=== PATIENT | female | born 1945 | race Caucasian/White ===

== ENCOUNTER 2016-08-07 09:44 | Inpatient (IN) | payer OTHER, MEDICARE ==
[~2016-08-07] VITALS: Ht 162.6 cm; Wt 56.7 kg
[2016-08-07] VITALS (27 sets, daily range): BP systolic 95–140; BP diastolic 27–85
--- NOTE | ~2016-08-07 | S ---
[facility] [place] [address] SURGICAL PATH RPT PROCEDURE Name: AVELINO WILSON Room #: 542-P ADM IN M.R.#: [id number] Admission: 08/07/16 Date of : 43 Discharge: Report #: [id number] Path Case #: [id number] PATHOLOGY REPORT COLLECTION DATE: 08/12/2016 RECEIVED DATE: 08/12/2016 SUBMITTING PHYS: Dr. Dilshad Nichole OTHER PHYS: Dr. Gareth Palmer SPECIMEN(S) RECEIVED: A.Bx of gastritis * * * * * * * * * * * * FINAL DIAGNOSIS: "Bx of gastritis," biopsy: - Gastric mucosa with mild reactive changes and mild chronic inflammation. - Negative H. pylori immunohistochemical stain (block A1); control reacted appropriately. (CLW:; d/t: 08/13/16) PATHOLOGIST: Domenica Sauceda M.D. REPORT ELECTRONICALLY SIGNED BY: Domenica Sauceda M.D. DATE/TIME: 08/13/2016 13:41 * * * * * * * * * * * * GROSS PATHOLOGY: Received in formalin labeled "Avelino Wilson and bx of gastritis," are 6 segments of radford soft tissue measuring 1.6 x 0.2 x 0.2 cm in aggregate dimensions and ranging from 0.2 to 0.4 cm in maximum dimension. The specimen is submitted entirely in cassette A1. (TTL; 08/12/2016) CLINICAL HISTORY: GI bleed, anemia INITIAL CPT CODE(S): A; 59633, 80729 Professional services performed by [facility] at [facility] [address], [place] [address] Technical services performed by [facility] at [address] [place] [address], [address] [address]. [facility] [address] [place] [address] SURGICAL PATH RPT PROCEDURE Name: AVELINO WILSON Room #: 542-P ADM IN M.R.#: [id number] Admission: 08/07/16 Date of : 43 Discharge: Report #: [id number] Path Case #: [id number] [facility] [address] [address] PHONE: [phone] DIRECTOR: Nilson Clark M.D. * * * END OF REPORT * * *
--- NOTE | ~2016-08-07 | P ---
[facility] [place] [address] PROCEDURE REPORT Name: ISSAC WILSON Room #: 542-P ADM IN M.R.#: [id number] Admission: 08/07/16 Attend Phys: Gareth Azul MD Discharge: Date of : 43 Report #: [id number] THIS REPORT FOR: //name// CC: Gareth Palmer MD DATE OF SERVICE: 08/08/2016 PROCEDURE: Diagnostic EGD. INDICATION FOR PROCEDURE: This patient has had melena which dropped her hemoglobin down to 5. She has been taking Aleve, stopped taking her proton pump inhibitor in the past that she was on for previous peptic ulcer disease. She has a history of Hodgkin's lymphoma that was treated twice and then she underwent a stem cell transplant. Today, she is awake, alert, oriented x 4 and cooperative and pleasant to converse with. Heart, rate and rhythm are regular with a normal S1 and normal S2. The lungs are clear bilaterally. The abdomen is soft. Bowel sounds present in all 4 quadrants. There is no palpable organomegaly or mass. There is no tenderness, rebound, or guarding. Informed consent for this procedure was obtained prior to the administration of any medication. The risks of the procedure which include bleeding, perforation, infection, complications of sedation, and the possibility I could miss something have been explained to the patient and she has indicated her consent by signing. Propofol 100 mg was slowly titrated before and during this procedure for patient comfort by the anesthesia service in the Intensive Care Unit. The Fujinon upper videoscope was introduced through the upper esophageal sphincter and advanced under direct visualization to the descending duodenum. Findings are noted on withdrawal of the scope. Duodenal mucosa appears normal throughout its entirety. Pylorus, normal mucosa. Antrum, normal mucosa. In the distal body, the mucosa appears normal. In the proximal body of the stomach, there is a necrotic white based ulcer with several visible vessels, none were bleeding in the base of this ulcer, it is approximately 2 cm in size. The remaining upper stomach appeared normal including the cardia. The scope was withdrawn to the esophagus. The Z line is appropriately located at the top the gastric folds and appears normal. The esophageal mucosa appears normal throughout its entirety. The scope was withdrawn. The patient went to the recovery area in stable condition. She tolerated the procedure well. IMPRESSION: Ulceration on the proximal body of the stomach with necrotic base [address] [address] PROCEDURE REPORT Name: ISSAC WILSON Room #: 542-P [facility] IN .R.#: [id number] Admission: 08/07/16 Attend Phys: Gareth Azul MD Discharge: Date of : 43 Report #: [id number] and visible vessels in the base, nonbleeding. My recommendations were for her to continue the proton pump inhibitors, avoid Aleve. She should have a followup EGD in 10-12 weeks to document ulcer healing of an isolated proximal gastric ulcer. We will give her iron sucrose infusions. Thank you very much once again for allowing me to participate in her care. <ELECTRONICALLY SIGNED> By: Dianne Arizmendi DO 08/09/16 1612 1605 0221 Dianne Arizmendi DO /nt
--- NOTE | ~2016-08-07 | EKG ---
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: Cora CARTY : 1945 Requested By: Gareth Azul Order Number: [id number] MD: Leo Morgan Measurements Intervals [place] Rate: 84 P: 71 AR: 120 QRS: -36 QRSD: 96 T: 66 QT: 362 QTc: 428 Interpretive Statements Sinus rhythm Ventricular premature complex Abnormal R-wave progression, early transition Inferior infarct, old No previous ECGs available for comparison Electronically Signed On 08-11-2016 14:04:41 MECHANIC ASSISTANT by Leo Morgan [email or web address] <ELECTRONICALLY SIGNED> By: Leo Morgan MD, [facility] 08/11/16 1404 30 30 Leo Morgan MD, [facility] /EPI
--- NOTE | ~2016-08-07 | P ---
[facility] [place] [address] PROCEDURE REPORT Name: ISSAC WILSON Room #: 542-P [facility] IN M.R.#: [id number] Admission: 08/07/16 Attend Phys: Gareth Azul MD Discharge: Date of : 44 Report #: [id number] THIS REPORT FOR: //name// CC: Gareth Palmer MD BRIEF HISTORY: The patient is a 71-year-old woman who was admitted with gastrointestinal bleeding, found to have a gastric ulcer, who was demonstrating to have evidence of recurrent gastrointestinal bleeding during her possible stay. She is thus far has received 4-5 units of blood. PREOPERATIVE DIAGNOSIS: Recurrent bleeding ulcer. POSTOPERATIVE DIAGNOSES: 1. Very deep nonbleeding gastric ulcer, high fundus/cardia. 2. Diffuse gastritis. MEDICATIONS: Deep sedation with propofol per anesthesia. SPECIMEN: None. BIOPSIES: Gastritis. ESTIMATED BLOOD LOSS: 3 mL. PROCEDURE: EGD with biopsy. FINDINGS: Prior to propofol sedation, procedure of upper endoscopy and potential therapeutic intervention was discussed with the patient, all potential risks and its complications. She indicates she understands and desires to proceed. DESCRIPTION OF PROCEDURE: The patient in left lateral decubitus position, the [employer] video endoscope was inserted in the cervical esophagus under direct vision without difficulty. Examination of this organ to its entire length revealed normal esophageal mucosa down the squamocolumnar junction. The squamocolumnar junction was inspected and noted to be unremarkable. No ulcers, erosions or blood was seen. Scope was advanced in the stomach, was examined on end view as well as retroflexed views. There was no blood in the stomach. There was a mild erythematous gastritis, but no erosions or bleeding was seen. Examination of distal stomach revealed intact mucosa. However, examination of the proximal stomach revealed a very deep ulcer high in the fundus of the stomach essentially close to the region of the cardia. The ulcer crater was very, very deep. The edges were smooth and benign. The ulcer base was covered with white exudate. The exposed vessel was not seen. Clots were not seen. There was one blackish area on the perimeter. However, this ulcer has very deep and I have concerned [facility] [address] [place] [address] PROCEDURE REPORT Name: ISSAC WILSON Room #: 542-P [facility] IN .R.#: [id number] Admission: 08/07/16 Attend Phys: Gareth Azul MD Discharge: Date of : 43 Report #: [id number] this was a penetrating ulcer and thus with thermal intervention, we potentially could cause bleeding, not be able to control due to the size of the vessels. It was felt best not to intervene at this point. Biopsies obtained of the gastritis. The pylorus, duodenal bulb and postbulbar sweep were inspected and noted unremarkable, no evidence of blood. disposition, the patient with very deep gastric ulcer. I am concern this is a penetrating ulcer. No bleeding at this point in time. We will obtain a CT for further evaluation. If bleeding persists, she may require surgical intervention. Surgical opinion would be reasonable. She is currently on pantoprazole drip, was started last evening. She is on sucralfate, which we will continue. She should avoid use of nonsteroidals. We will follow up on biopsies and make further recommendations. Continue moderate hemoglobin. If further evidence of bleeding, surgical intervention may require. <ELECTRONICALLY SIGNED> By: Dilshad Nichole MD 08/12/16 1943 1345 1820 Dilshad Nichole MD /nt
--- NOTE | ~2016-08-07 | D ---
[facility] [place] [address] DISCHARGE SUMMARY Name: ISSAC WILSON Room #: 218-P [facility] IN M.R.#: [id number] Admission: 08/07/16 Attend Phys: Gareth Azul MD Discharge: 08/15/16 Date of : 43 Report #: [id number] THIS REPORT FOR: //name// CC: Gareth Azul Iesha Palmer DATE OF SERVICE: 08/15/2016 DISCHARGE DIAGNOSES: 1. Penetrating gastric ulcer status post EEG x 2 as well as splenic artery embolization. 2. Question transient ischemic attack with recent confusion, now resolved. 3. History non-Hodgkin's lymphoma status post stem cell transplant. 4. Rheumatoid arthritis. 5. Anemia, status post 4-5 units of packed red blood cells. CONSULTS: GI, Dr. Nichole; Surgery, Dr. Vega; IR, Dr. Sheehan. PROCEDURES: She had the first EGD done on August [address] Arizmendi that showed ulceration of proximal body of the stomach with necrotic base and visible vessels, but no bleed. She had a repeat EGD, but done by Dr. Nichole because of ongoing anemia that showed a penetrating ulcer. On August 13, she had embolization of splenic artery. HOSPITAL COURSE: The patient is a 71-year-old female with a history of peptic ulcer disease, non-Hodgkin's lymphoma status post stem cell transplant, rheumatoid arthritis, presented to the ER secondary to weakness and confusion. Please see details of admission dictated by Dr. Gareth Azul on August 07. The patient reported having some dark stools for some time and also had a hemoglobin of 5.8. She was tachycardic and confused in the ER. Initial concerns were for TIA. CT of the head in the ER was negative. She was admitted. GI was consulted for GI bleed. She had an EGD with results as above. Because of concerns of penetrating ulcer, Surgery was also consulted. She had a CT scan of the abdomen and pelvis that showed unusual appearance of a gastric fundus which suggest a large posterior penetrating gastric ulcer with opening of the ulcer budding at the anterior surface of the medial spleen. Subsequent to that, IR was consulted and she had a splenic artery embolization. She was continued on a Protonix drip. Hemoglobin finally stabilized. She did not require any surgical intervention other than the splenic artery embolization. On the , she was tolerating her diet and no further abdominal pain and she was cleared for discharge by GI and Surgery. At that time, her hemoglobin was also stable at 8.0. Of note, she did receive 4-5 units of packed red blood cells during the hospital course. DISCHARGE DISPOSITION: To home. [address] [address] DISCHARGE SUMMARY Name: ISSAC WILSON Room #: 218-P [facility] IN M.R.#: [id number] Admission: 08/07/16 Attend Phys: Gareth Azul MD Discharge: 08/15/16 Date of : 43 Report #: [id number] DISCHARGE PHYSICAL EXAMINATION: VITAL SIGNS: Temperature 36, pulse 82, blood pressure 136/80, O2 sat 100% on room air. GENERAL: She is awake, alert, answering question appropriately, no acute respiratory distress. CARDIOVASCULAR: Regular rate and rhythm. No murmurs. LUNGS: Clear to auscultation bilaterally. No crackles or wheeze. ABDOMEN: Soft. No distention or tenderness. EXTREMITIES: No edema. NEUROLOGIC: Nonfocal. DISCHARGE MEDICATIONS: Ferrous sulfate 325 daily, Carafate 1 g a.c. and at bedtime, Protonix 40 b.i.d. for 10 days and then she will go down to 1 daily, zinc chelate 15 mg daily. DISCHARGE INSTRUCTIONS: CBC and CMP in 1 week. Follow up with GI in 6 weeks for repeat endoscopy. Follow up with primary care in 1 week and to seek immediate medical attention if symptoms worsen or recur or if she has any significant medical concerns. Discharge planning took 45 minutes. <ELECTRONICALLY SIGNED> By: Abigail Charles MD 10/07/16 1053 1650 45 Abigail Charles MD /nt
--- NOTE | ~2016-08-07 | HC ---
[facility] [address] CONSULTATION Name: ISSAC WILSON Room #: 218-[facility] IN M.R.#: [id number] Admission: 08/07/16 Attend Phys: Gareth Azul MD Discharge: Date of : 43 Report #: [id number] THIS REPORT FOR: //name// CC: Gareth Gahanie Estela DATE OF SERVICE: 08/12/2016 GENERAL SURGERY CONSULTATION ATTENDING PHYSICIAN: Gareth Azul M.D. REASON FOR CONSULTATION: Upper GI bleed. HISTORY OF PRESENT ILLNESS: This is a 71-year-old female patient who was admitted to with a syncopal episode. She had been passing dark stools for "quite a while". She was seen in the [facility] emergency room initially last Friday, but was dismissed home when she was responded IV fluid resuscitation. When admitted more recently on 08/07/2016, the patient was found to be severely anemic, with hemoglobin of 5.8 with continued passage of dark stools, found to be heme positive. She underwent an EGD by Dr. Dianne Arizmendi on 08/08/2016, which revealed ulceration of the proximal body of the stomach with a necrotic base and visible nonbleeding vessels. The patient was placed on a proton pump inhibitor drip and sucralfate. She had more hematemesis and has required several units of packed red blood cells. After her most recent hematemesis episode, she underwent a repeat EGD by Dr. Dilshad Nichole on 08/12/2016, earlier today, which showed a very deep nonbleeding gastric ulcer high in the fundus, possibly near the cardia as well as diffuse gastritis. Dr. Nichole discussed this patient with me in the hallway and has consulted our service. He has concern that the ulcer is penetrating into the perigastric tissue. The patient reports no abdominal pain at the present time, but has occasional episodes of hematemesis. She has a history of peptic ulcer disease identified in 09/[address] Guerrero at [facility]. The patient was placed on a proton pump inhibitor and her ulcers healed thereafter. She did not continue her proton pump inhibitor and she has been taking 2 Aleve twice daily more recently over the past several weeks. PAST MEDICAL HISTORY: Significant for non-Hodgkin lymphoma, rheumatoid arthritis, sciatica and previous stem cell transplantation in 2006. PAST SURGICAL HISTORY: Includes left knee surgery times 2 and right knee surgery times 1 and hysterectomy and stem cell transplant. MEDICATIONS: Include Protonix drip, iron sulfate, sucralfate p.r.n. medications. [address] [address] CONSULTATION Name: ISSAC WILSON Room #: 218-P ADM IN M.R.#: [id number] Admission: 08/07/16 Attend Phys: Gareth Azul MD Discharge: Date of : 43 Report #: [id number] ALLERGIES: DAPSONE and DIPHENHYDRAMINE. FAMILY HISTORY: Reviewed and noncontributory to this hospitalization. SOCIAL HISTORY: The patient denies any use of tobacco or illicit drugs. She drinks red wine on occasion. She is accompanied by her daughter. REVIEW OF SYSTEMS: As per history of present illness. In addition: GENERAL: The patient denies unintentional weight loss. Denies fever or chills. HEENT: Denies changes in taste, vision, hearing or smell. RESPIRATORY: Denies shortness of breath, COPD or asthma. CARDIOVASCULAR: Denies chest pain or palpitations. GASTROINTESTINAL: Denies dyspepsia. Otherwise, as per history of present illness. Has undergone colonoscopy within the past couple of years. GENITOURINARY: Denies dysuria, urgency, increased urinary frequency or hematuria. MUSCULOSKELETAL: Denies myalgia or arthralgia and has a history of rheumatoid arthritis. NEUROLOGIC: Denies headaches, numbness or tingling. PSYCHIATRIC: Denies depression, anxiety or suicidal ideations. SKIN/INTEGUMENTARY: Denies new skin lesions, rashes or moles. ENDOCRINE: Denies polydipsia, polyuria or heat or cold intolerance. HEMATOLOGIC: Denies easy bruising and has had difficulty with upper GI bleeding, but denies cutaneous bleeding. All other review of systems is negative. PHYSICAL EXAMINATION: VITAL SIGNS: Temperature 100.1, blood pressure 116/49, pulse 136 and respirations 18. GENERAL: This is a 71-year-old female patient in no acute distress. HEENT: Atraumatic, normocephalic with moist, but pale mucosal membranes. NECK: Supple. No appreciable lymphadenopathy. Trachea is midline. CHEST: Clear bilaterally. No crackles or wheezes. CARDIOVASCULAR: Sinus tachycardia (reported heart rate 132; palpable heart rate currently 102). S1, S2. ABDOMEN: Soft, nontender and nondistended, with normoactive bowel tones. GENITOURINARY: Normal external female genitalia. EXTREMITIES: No clubbing, cyanosis or edema. NEUROLOGIC: Cranial nerves 2-12 grossly intact. PSYCHIATRIC: Normal mood and affect. SKIN/INTEGUMENT: No acute inflammatory changes, rashes or lesions are present. LABORATORY DATA: Most recent hemoglobin and hematocrit from earlier this morning were 7.6 and 22.2 respectively. She has received 5 units of packed red [address] [address] CONSULTATION Name: ISSAC WILSON Room #: 218-P [facility] IN ..#: [id number] Admission: 08/07/16 Attend Phys: Gareth Azul MD Discharge: Date of : 43 Report #: [id number] blood cells. Her hemoglobin yesterday was 7.0 and hematocrit 20.6. White blood cell count was 3.9 and platelet count 162,000. RADIOLOGIC STUDIES: CT abdomen/pelvis is currently pending. H pylorus antigen was negative. IMPRESSION AND PLAN: This is a 71-year-old female patient with the above-listed comorbidities, who has an upper gastrointestinal bleed with a large ulcer high in the fundus, not actively bleeding on either endoscopic procedure. However, she has had anemia and hematemesis in between her endoscopic procedures. A CT is currently pending. Should the patient have ongoing difficulty with bleeding, would consider interventional radiology for embolization of the area of bleeding. If this is ineffective, she may ultimately require surgery, which would likely involve at least a partial gastrectomy. The actual operation to be performed is dependent upon the location of the ulcer. The pathophysiology and natural history of ulcer disease was discussed with the patient as well as the treatment alternatives and potential surgical options. The patient understands the plan. We will await the CT scan and follow the patient closely, especially in regards to her hemodynamic status and laboratory studies. Continue the PPI drip and Carafate. Will add an H2 receptor lisa. I sincerely appreciate the opportunity to participate in the care of this patient and will leave further recommendations and orders in the electronic medical record as appropriate. <ELECTRONICALLY SIGNED> By: Elmer Vega MD, FACS 08/14/16 0912 1303 0010 Elmer Vega MD, FACS /nt
--- NOTE | ~2016-08-07 | EKG ---
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 : 1945 Requested By: Orlando Domingo Order Number: [id number] MD: Leo Morgan Measurements Intervals [place] Rate: 100 P: 79 VA: 132 QRS: -29 QRSD: 100 T: 77 QT: 343 QTc: 443 Interpretive Statements Sinus tachycardia Abnormal R-wave progression, early transition Inferior infarct, old Compared to ECG 08/02/2016 12:35:24 No significant change was found Electronically Signed On 08-07-2016 12:51:32 LIP READING TEACHER by Leo Morgan [email or web address] <ELECTRONICALLY SIGNED> By: Leo Morgan MD, [facility] 08/07/16 1251 0954 0954 Leo Morgan MD, [facility] /EPI
[~2016-08-07 09:44] MED LIST: BIOTIN5 M1 PO; CELEXA20 MG PO; DITROPAN; FISH OIL 1,001000 M2 PO; IRON325 PO; LEXAPRO 10 MG T10 MG PO; MULTIVITAMINS; OMEGA-3100 MG PO; OMEPRAZOLE 20 M20 MG PO; ONDANSETRON HCL4 M2 PO; PRILOSEC40 MG PO; VITAMIN D1000 UNI1 PO; ZINC CHELATE50 MG PO
[2016-08-07] MEDS ORDERED: ALEVE220 MG PO (10:12)
[2016-08-07 10:24] LABS: MONOCYTES 6.4 % (1.0-8.0); RDW 15.7 % (10.5-14.5)
[2016-08-07 10:25] LABS: ABSOLUTE NEUTROPHILS 7.3 thou/uL (1.4-8.2); BASOPHILS 0.6 % (0.0-2.0); EOSINOPHILS 0.4 % (0.0-3.0); LYMPHOCYTES 12.5 % (24.0-44.0); MCH 31.3 pg (26.0-34.0); MCHC 33.3 % (28.0-37.0); MCV 94.1 fL (80.0-100.0); PLATELET COUNT 230 thou/uL (150-400); POLYS 80.1 % (36.0-66.0); RBC 1.84 mil/uL (4.20-5.00); WBC 9.1 thou/uL (4.0-11.0)
[2016-08-07 10:29] LABS: CALCIUM 8.6 mg/dL (8.5-10.1); CREATININE 0.9 mg/dL (0.6-1.3); POTASSIUM 3.9 mmol/L (3.5-5.1)
[2016-08-07 10:36] LABS: MANUAL DIFF NO
[2016-08-07 10:37] LABS: HEMATOCRIT 17.3 % (37.0-47.0); HEMOGLOBIN 5.8 gm/dL (12.0-15.0)
[2016-08-07 17:53] LABS: HEMATOCRIT 30.1 % (37.0-47.0)
[2016-08-07 17:54] LABS: HEMOGLOBIN 10.5 gm/dL (12.0-15.0)
[2016-08-08] VITALS (24 sets, daily range): BP systolic 69–142; BP diastolic 49–109
[2016-08-08 04:29] LABS: HEMOGLOBIN 10.3 gm/dL (12.0-15.0); MCH 31.6 pg (26.0-34.0); MCHC 34.5 % (28.0-37.0); MCV 91.7 fL (80.0-100.0); RBC 3.27 mil/uL (4.20-5.00); RDW 14.9 % (10.5-14.5); WBC 5.8 thou/uL (4.0-11.0)
[2016-08-08 04:55] LABS: ALBUMIN 2.6 g/dL (3.4-5.0); CALCIUM 7.8 mg/dL (8.5-10.1); CREATININE 0.9 mg/dL (0.6-1.3); POTASSIUM 4.1 mmol/L (3.5-5.1); TOTAL BILIRUBIN 0.6 mg/dL (<0.1-1.0)
[2016-08-09 00:02] VITALS: BP 63/38
[2016-08-09 00:18] VITALS: BP 116/55
[2016-08-09 02:00] VITALS: BP 128/53
[2016-08-09 04:00] VITALS: BP 129/68
[2016-08-09 04:59] LABS: HEMATOCRIT 31.3 % (37.0-47.0); HEMOGLOBIN 10.7 gm/dL (12.0-15.0); MCH 31.4 pg (26.0-34.0); MCHC 34.1 % (28.0-37.0); MCV 92.2 fL (80.0-100.0); RBC 3.39 mil/uL (4.20-5.00); WBC 5.8 thou/uL (4.0-11.0)
[2016-08-09 05:35] LABS: CALCIUM 8.8 mg/dL (8.5-10.1); CREATININE 0.9 mg/dL (0.6-1.3); POTASSIUM 4.1 mmol/L (3.5-5.1)
[2016-08-09 06:00] VITALS: BP 140/62
[2016-08-09 19:45] VITALS: BP 112/54
[2016-08-10 01:42] VITALS: BP 95/51
[2016-08-10 03:17] VITALS: BP 106/59
[2016-08-10 05:02] VITALS: BP 109/49
[2016-08-10 07:46] LABS: HEMATOCRIT 23.3 % (37.0-47.0)
[2016-08-10 07:50] LABS: HEMOGLOBIN 7.8 gm/dL (12.0-15.0)
[2016-08-10 07:52] VITALS: BP 91/32
[2016-08-10 14:35] LABS: HEMATOCRIT 24.6 % (37.0-47.0); HEMOGLOBIN 8.6 gm/dL (12.0-15.0)
[2016-08-10 15:37] VITALS: BP 118/43
[2016-08-10 19:25] VITALS: BP 94/45
[2016-08-11 04:45] VITALS: BP 95/56
[2016-08-11 07:22] VITALS: BP 94/47
[2016-08-11 11:41] LABS: MCHC 34.2 % (28.0-37.0); RBC 2.17 mil/uL (4.20-5.00); WBC 3.9 thou/uL (4.0-11.0)
[2016-08-11 11:43] LABS: HEMATOCRIT 20.6 % (37.0-47.0); MCH 32.4 pg (26.0-34.0); MCV 94.7 fL (80.0-100.0); RDW 15.4 % (10.5-14.5)
[2016-08-11 15:53] VITALS: BP 115/52
[2016-08-11 17:33] VITALS: BP 112/47; BP 118/50
[2016-08-11 19:47] VITALS: BP 118/50
[2016-08-11 21:40] VITALS: BP 115/52; BP 116/50; BP 137/61
[2016-08-12 03:15] VITALS: BP 80/31
[2016-08-12 04:31] LABS: HEMATOCRIT 22.2 % (37.0-47.0); HEMOGLOBIN 7.6 gm/dL (12.0-15.0)
[2016-08-12 05:44] VITALS: BP 103/47
[2016-08-12 15:20] VITALS: BP 116/49
[2016-08-12 17:27] LABS: HEMATOCRIT 21.6 % (37.0-47.0); HEMOGLOBIN 7.5 gm/dL (12.0-15.0)
[2016-08-12 19:31] VITALS: BP 113/36
[2016-08-12 22:12] LABS: HEMATOCRIT 18.8 % (37.0-47.0); HEMOGLOBIN 6.5 gm/dL (12.0-15.0)
[2016-08-12 23:45] VITALS: BP 100/43; BP 110/50
[2016-08-13] VITALS (9 sets, daily range): BP systolic 93–134; BP diastolic 42–67
[2016-08-13 04:43] LABS: MCH 30.8 pg (26.0-34.0); MCHC 33.8 % (28.0-37.0); MCV 91.1 fL (80.0-100.0); RBC 2.85 mil/uL (4.20-5.00); RDW 15.5 % (10.5-14.5); WBC 4.5 thou/uL (4.0-11.0)
[2016-08-13 04:56] LABS: HEMOGLOBIN 8.8 gm/dL (12.0-15.0)
[2016-08-13 04:57] LABS: CALCIUM 8.2 mg/dL (8.5-10.1); CREATININE 0.8 mg/dL (0.6-1.3); POTASSIUM 3.6 mmol/L (3.5-5.1)
[2016-08-13 05:16] LABS: PROTIME 10.7 Seconds (9.3-11.4)
[2016-08-13 11:27] LABS: MCV 88.7 fL (80.0-100.0); RBC 2.6 mil/uL (4.20-5.00); RDW 15.4 % (10.5-14.5); WBC 3.6 thou/uL (4.0-11.0)
[2016-08-13 12:02] LABS: CALCIUM 8.4 mg/dL (8.5-10.1); CREATININE 0.9 mg/dL (0.6-1.3); POTASSIUM 3.6 mmol/L (3.5-5.1)
[2016-08-14] VITALS (7 sets, daily range): BP systolic 101–125; BP diastolic 38–60
[2016-08-14 05:06] LABS: MCHC 34.7 % (28.0-37.0); MCV 89.3 fL (80.0-100.0); RBC 2.57 mil/uL (4.20-5.00); RDW 15.9 % (10.5-14.5); WBC 5.5 thou/uL (4.0-11.0)
[2016-08-14 05:18] LABS: CALCIUM 8.2 mg/dL (8.5-10.1); CREATININE 0.8 mg/dL (0.6-1.3); POTASSIUM 3.8 mmol/L (3.5-5.1)
[2016-08-15 03:28] VITALS: BP 110/55
[2016-08-15 04:40] LABS: HEMATOCRIT 23.5 % (37.0-47.0); MCH 31.4 pg (26.0-34.0); MCHC 34.2 % (28.0-37.0); MCV 91.8 fL (80.0-100.0); RBC 2.56 mil/uL (4.20-5.00); RDW 16.7 % (10.5-14.5); WBC 4.8 thou/uL (4.0-11.0)
[2016-08-15 05:10] LABS: CALCIUM 8.2 mg/dL (8.5-10.1); CREATININE 0.9 mg/dL (0.6-1.3); POTASSIUM 3.5 mmol/L (3.5-5.1)
[2016-08-15 07:45] VITALS: BP 136/80
[2016-08-15] MEDS ORDERED: CARAFATE 11 GM/10 M1 PO (09:54)
[2016-08-15] MEDS ORDERED: IRON325 PO (09:54)
[2016-08-15] MEDS ORDERED: PROTONIX40 M1 PO (09:54)
[2016-08-15 12:17] VITALS: BP 136/80
== END 2016-08-15 14:35 | disposition home or self-care (01) | DRG 326 ==
LOC: ER 09:44 → EROBS 11:35 → ICU 11:35 → 5S 08-09 13:11 → 2N 08-13 18:37
PROVIDERS: Emergency Medicine; Family Medicine; Hospitalist; Internal Medicine Gastroenterology; Nurse Practitioner; Nurse Practitioner Acute Care; Radiology Vascular & Interventional Radiology; Specialist; Surgery
PROC: 30233N1 Transfusion of Nonautologous Red Blood Cells into Peripheral Vein, Percutaneous Approach (ICD-10-PCS; 2016-08-07)
PROC: 0DJ08ZZ Inspection of Upper Intestinal Tract, Via Natural or Artificial Opening Endoscopic (ICD-10-PCS; 2016-08-08)
PROC: 0DB68ZX Excision of Stomach, Via Natural or Artificial Opening Endoscopic, Diagnostic (ICD-10-PCS; 2016-08-12)
PROC: 04L43DZ Occlusion of Splenic Artery with Intraluminal Device, Percutaneous Approach (ICD-10-PCS; principal; 2016-08-13)
PROC: 0DH Gastrointestinal System, Insertion (ICD-10-PCS; principal; 2016-08-13)
DX: K25.0 Acute gastric ulcer with hemorrhage (principal); G93.41 Metabolic encephalopathy; D62 Acute posthemorrhagic anemia; Z94.84 Stem cells transplant status; K29.50 Unspecified chronic gastritis without bleeding; M06.9 Rheumatoid arthritis, unspecified; T39.395A Adverse effect of other nonsteroidal anti-inflammatory drugs [NSAID], initial encounter; Z90.710 Acquired absence of both cervix and uterus; Z98.890 Other specified postprocedural states; Z88.8 Allergy status to other drugs, medicaments and biological substances; Z87.891 Personal history of nicotine dependence; Z85.72 Personal history of non-Hodgkin lymphomas; Z86.73 Personal history of transient ischemic attack (TIA), and cerebral infarction without residual deficits; Z87.11 Personal history of peptic ulcer disease
CPT/HCPCS: 10078; 10785; 10797; 27000; 62110; 62900; 70005